=== PATIENT | female | born 1990 | race Caucasian/White ===

== ENCOUNTER 2017-02-13 15:52 | Emergency (ER) | payer SELFPAY ==
[~2017-02-13] VITALS: Ht 165.1 cm; Wt 63.0 kg
[2017-02-13 17:48] LABS: HEMATOCRIT 41.3 % (36.0-46.0); MCH 29.7 PG (29.0-34.0); MCHC 34.1 G/DL (30.0-36.0); MCV 87.1 FL (83-99); MEAN PLAT.VOLUME 9.6 uM^3 (9.5-12.4); PLATELET COUNT 196 K/uL (156-360); RBC DIS.WIDTH-CV 11.2 % (11.8-14.6); RBC DIS.WIDTH-SD 35.9 % (39-53); RED BLOOD COUNT 4.74 M/uL (3.80-5.20); WHITE BLOOD COUNT 7.7 K/uL (4.1-10.2)
[2017-02-13 17:55] LABS: CHLORIDE 105 mEq/L (99-109); POTASSIUM 3.7 mEq/L (3.7-5.4); SODIUM 140 mEq/L (136-147)
[2017-02-13 17:58] LABS: GLUCOSE 94 mg/dL (70-99)
[2017-02-13 17:59] LABS: ANION GAP 13 MEQ/L (2-14)
[2017-02-13 18:01] LABS: ALKALINE PHOSPHATASE 58 IU/L (3-129); GFR ESTIMATE (CALCULATED) > 59 mL/min/
[2017-02-13 18:02] LABS: UREA NITROGEN (BUN) 12 mg/dL (9-23)
[2017-02-13 18:10] LABS: QUANTITATIVE HCG < 4.0 MIU/ML
[2017-02-13] MEDS ORDERED: REGLAN10 MG PO (18:21)
[2017-02-13] MEDS ORDERED: MOTRIN800 MG PO (18:21)
[2017-02-13] MEDS ORDERED: IMITREX50 MG PO (18:21)
[2017-02-13 19:09] VITALS: BP 121/52
== END 2017-02-13 19:21 | disposition home or self-care (01) ==
LOC: EME 15:52
PROVIDERS: Nurse Practitioner Family
DX: G43.909 Migraine, unspecified, not intractable, without status migrainosus (principal)
CPT/HCPCS: 80053; 81003; 84702; 85027; 99281; 99285; J1200; J1885; J2765; J3030; J7030